=== PATIENT | female | born 1995 | race Caucasian/White ===

== ENCOUNTER 2019-12-15 16:16 | Emergency (ER) | payer MEDICAID ==
[~2019-12-15] VITALS: Ht 175.3 cm; Wt 104.5 kg
[2019-12-15 16:33] VITALS: BP 140/75
[2019-12-15] MEDS ORDERED: ketorolac trometh inj. 60 MG/2 ML VIAL IM ONE (17:35)
[2019-12-15] MEDS ORDERED: acetaminophen 325mg tablet PO ONE (17:35)
== END 2019-12-15 18:07 | disposition home or self-care (01) ==
LOC: ER 16:16
DX: S93.401A Sprain of unspecified ligament of right ankle, initial encounter (principal); Z88.8 Allergy status to other drugs, medicaments and biological substances; X58.XXXA Exposure to other specified factors, initial encounter; Y93.89 Activity, other specified; Y92.89 Other specified places as the place of occurrence of the external cause; Y99.8 Other external cause status
CPT/HCPCS: 29515; 73610; 96372; 99283; J1885

== ENCOUNTER 2023-06-22 19:33 | Emergency (ER) | payer MEDICAID ==
[~2023-06-22] VITALS: Ht 175.3 cm; Wt 100.0 kg
[2023-06-22 19:42] VITALS: BP 122/81; PULSE 94; RESP 16; TEMP 97.8; O2SAT 96
[2023-06-22 20:52] LABS: STREP A SCREEN POSITIVE (Neg)
[2023-06-22] MEDS ORDERED: AMOX-117 PO (20:53)
[2023-06-22] MEDS: dexamethasone sod phosphate 10mg/ml inj PO STA (21:03)
[2023-06-22] MEDS: amox tr/potassium clavulanate 875/125mg TAB PO ONE (21:03)
== END 2023-06-22 21:09 | disposition home or self-care (01) ==
LOC: ER 19:33
DX: J02.0 Streptococcal pharyngitis (principal); Z79.899 Other long term (current) drug therapy
CPT/HCPCS: 87880; 99283; J1100